=== PATIENT | female | born 1970 | race Caucasian/White ===

== ENCOUNTER 2016-11-11 01:19 | Emergency (ER) | payer OTHER ==
[~2016-11-11] VITALS: Ht 157.5 cm; Wt 106.9 kg
[2016-11-11 01:21] VITALS: TEMP 36.8; Ht 157.5 cm; Wt 106.9 kg
[2016-11-11 01:30] VITALS: O2SAT 98
[2016-11-11] MEDS ORDERED: MELO7.5T5 PO (01:57)
--- NOTE | 2016-11-11 02:02 | EMERGENCY ROOM VISIT NOTE ---
History Report prepared by Asher: Pradeep Petersen Under the Supervision of: Dr. Cristina aKng D.O. First contact with patient: 01:33 Chief Complaint: HYPERTENSION Stated Complaint: HIGH BP History of Present Illness The patient is a 46 year old female who presents to the Emergency Room with complaints of persistent hypertension throughout the day today. The patient's blood pressure was 146/97 in the morning. She continued checking the pressure throughout the day. Tonight the pressure was 154 systolically. The patient states that her blood pressure is typically 120 systolically. She saw her doctor two days ago and her blood pressure was 140/93 at that time. The patient had a headache three days ago which resolved. The patient has a paternal history of TIA and CVA, and he in his 60s. The patient had a burger , [place] fries, coleslaw, and ice cream tonight. She did not eat breakfast or lunch. The patient did not add extra salt or spices to her meal. The patient denies any major medical problems other than arthritis. Source of History: patient Onset: today Position: other (cardiovascular) Symptom Intensity: up to 154 systolically Quality: other (hypertension) Timing: other (persistent) Review of Systems See HPI for pertinent positives & negatives. A total of 10 systems reviewed and were otherwise negative. Past Medical & Surgical Medical Problems: (1) Arthritis Family History Hypertension Stroke Social History Smoking Status: Never Smoker Alcohol Use: none Drug Use: none Housing Status: lives with family Current/Historical Medications Scheduled Meloxicam (Mobic), 7.5 MG PO DAILY Allergies Coded Allergies: Codeine (Verified Allergy, Unknown, GI SYMPTOMS, 11/11/16) Physical Exam Vital Signs Date Time Temp Pulse Resp B/P Pulse Ox O2 Delivery O2 Flow Rate FiO2 11/11/16 03:25 81 18 139/88 95 Room Air 11/11/16 02:21 86 18 138/84 96 Room Air 11/11/16 01:34 90 11/11/16 01:30 100 18 151/101 98 Room Air 11/11/16 01:30 98 Room Air 11/11/16 01:21 36.8 93 18 161/105 98 Room Air Physical Exam HEENT: Head - normocephalic and atraumatic Pupils are equal, round, and reactive to light. Extraocular eye muscles are intact, and sclera are anicteric. Nose - moist nasal mucosa without discharge. Mouth - moist buccal mucosa. Oropharynx is nonerythematous and there is no tonsillar exudate or edema noted. Neck: Supple; no JVD, nuchal rigidity, cervical lymphadenopathy, or auscultated bruits. No thyromegaly. Heart: Regular rate and rhythm. There is a normal S1 and S2 with no murmurs, clicks, or gallops appreciated. Lungs: Clear to auscultation bilaterally with no wheezes, rales, or rhonchi. Abdomen: Soft, completely nontender, nondistended, with good bowel sounds. There are no palpable pulsatile masses or hepatosplenomegaly. There is no guarding, rigidity, or rebound noted. Extremities: No evidence of cyanosis, clubbing, or edema. There are easily palpable peripheral pulses. Skin: warm and dry with good turgor and no rashes. Medical Decision & Procedures ER Provider Diagnostic Interpretation: X-ray results as stated below per interpretation by me. CHEST ONE VIEW PORTABLE: No cardiomegaly, no pulmonary pathology. Laboratory Results 11/11/16 01:30 11/11/16 01:30 Test 11/11/16 01:30 Red Blood Count 4.96 M/uL (4.2-5.4) Mean Corpuscular Volume 82.5 fL (80-100) Mean Corpuscular Hemoglobin 28.6 pg (25-34) Mean Corpuscular Hemoglobin Concent 34.7 g/dl (32-36) RDW Standard Deviation 41.3 fL (36.4-46.3) RDW Coefficient of Variation 13.8 % (11.5-14.5) Mean Platelet Volume 10.3 fL (7.4-10.4) Anion Gap 7.0 mmol/L (3-11) Est Creatinine Clear Calc Drug Dose 80.8 ml/min Estimated GFR () 78.2 Estimated GFR (Non- 67.5 BUN/Creatinine Ratio 15.4 (10-20) Calcium Level 9.4 mg/dl (8.5-10.1) Total Creatine Kinase 82 U/L (26-192) Creatine Kinase MB < 0.5 ng/ml (0.5-3.6) Creatine Kinase MB Ratio (0-3.0) Troponin I < 0.015 ng/ml (0-0.045) Thyroid Stimulating Hormone (TSH) 2.280 uIu/ml (0.300-4.500) Laboratory results per my review. ECG Indication: other (hypertension) Rate (beats per minute): 80 Rhythm: normal sinus Findings: no acute ischemic change, no ectopy ED Course 0145: Past medical records reviewed. The patient was evaluated in room B11b. A complete history and physical exam was performed. An IV lock was initiated and labs are drones above. A twelve-lead EKG was obtained as described above. A chest x-ray was obtained which showed no evidence of widened mediastinum or cardiomegaly. 0230: The patient's blood pressure came down to 138/84 on its own. 0300: The patient is feeling much better. Discussed the discharge instructions with her. She verbalized understanding and agreement. The patient will be discharged. Medical Decision The patient is a 46 year old female who presents to the ED with hypertension. Differential diagnosis includes uncontrolled hypertension and anxiety. Laboratory interpretation: no leukocytosis, stable H&H, normal TSH and glucose normal renal function, cardiac enzymes were negative. The patient presents to the emergency department with increasing blood pressure. She purchased a blood pressure cuff today and took her pressure multiple times and found to be increasingly elevated but tonight. The patient admits she became quite anxious about the rising blood pressure. While here in the emergency department, the blood pressure came down nicely on its own. Patient is willing to start walking for exercise and will attempt to eat more than just 1 meal per day. The patient does admit eating potato chips and subs. She will try to change her diet. I've asked her to keep a log of her blood pressures while taking only 2 of them a day. Impression Primary Impression: HTN (hypertension) Scribe Attestation The scribe's documentation has been prepared under my direction and personally reviewed by me in its entirety. I confirm that the note above accurately reflects all work, treatment, procedures, and medical decision making performed by me. Departure Information Dispostion Home / Self-Care Referrals Giovany Ying M.D. (PCP) Forms HOME CARE DOCUMENTATION FORM, IMPORTANT VISIT INFORMATION, WORK / SCHOOL INSTRUCTIONS Patient Instructions ED Hypertension Poss, My [facility] Additional Instructions Rest. Keep a log of your blood pressure- 2 X a day Start walking for exercise Avoid high salt and sodium foods. Take 3-5 small healthy meals a day Follow up with PCP
[2016-11-11 02:07] LABS: HEMATOCRIT 40.9 % (37-47); MEAN CELL VOLUME 82.5 fL (80-100); MEAN CORPUSCULAR HEMOGLOBIN 28.6 pg (25-34); MEAN CORPUSCULAR HGB CONC 34.7 g/dl (32-36); MEAN PLATELET VOLUME 10.3 fL (7.4-10.4); PLATELET COUNT 286 K/uL (130-400); RED BLOOD COUNT 4.96 M/uL (4.2-5.4); WHITE BLOOD COUNT 10.16 K/uL (4.8-10.8)
[2016-11-11 02:16] LABS: BLOOD UREA NITROGEN 15 mg/dl (7-18); BUN/CREATININE RATIO 15.4 (10-20); CALCIUM 9.4 mg/dl (8.5-10.1); CARBON DIOXIDE 29 mmol/L (21-32); CHLORIDE 104 mmol/L (98-107); GLUCOSE 103 mg/dl (70-99); POTASSIUM 3.8 mmol/L (3.5-5.1); SODIUM 140 mmol/L (136-145)
[2016-11-11 03:25] VITALS: BP 139/88; PULSE 81; O2SAT 95
--- NOTE | 2016-11-11 06:15 | DIAGNOSTIC IMAGING REPORT ---
CHEST ONE VIEW PORTABLE CLINICAL HISTORY: Hypertension COMPARISON STUDY: 08/04/2015 FINDINGS: The cardiac and mediastinal contours are normal. There is no evidence of focal pulmonary consolidation. There is no evidence of failure. No pleural effusions are visualized.[ IMPRESSION: No active disease in the chest. Electronically signed by: Carlo Diaz M.D. 11/11/2016 6:13 AM Dictated Date/Time: 11/11/2016 6:13 AM
== END 2016-11-11 03:27 | disposition home or self-care (01) ==
LOC: C.EDB 01:20
DX: I10 Essential (primary) hypertension (principal); Z82.49 Family history of ischemic heart disease and other diseases of the circulatory system; Z82.0 Family history of epilepsy and other diseases of the nervous system; M19.90 Unspecified osteoarthritis, unspecified site